=== PATIENT | female | born 1980 | race Caucasian/White ===

== ENCOUNTER → 2024-07-02 | Outpatient (CLI) | payer MEDICAID, SELFPAY ==
--- NOTE | 2024-07-02 11:30 | XR_ITS ---
Examination: Screening digital mammography, bilateral Computer aided detection 3-D breast Tomosynthesis, bilateral Date and time of exam: July 02, 2024 1149 hours No priors Indication: Screening Technique: Nonmagnified MLO, CC views of the breasts to been obtained, reconstructed from 3-D Tomosynthesis images. R2 computer aided detection program utilized for evaluation of suspicious masses and/or abnormal calcifications. 3-D Tomosynthesis images obtained. Findings: The breasts are heterogeneously dense, which may obscure small masses Benign calcifications 17 mm focal asymmetry upper right breast MLO view, posterior depth 6.4 cm from the nipple Benign calcifications IMPRESSION: BI-RADS Category 0: Incomplete: Need additional imaging evaluation 17 mm focal asymmetry upper right breast MLO view, posterior depth, recommend follow-up spot
== END | disposition home or self-care (01) ==
LOC: CDIM 11:41
PROVIDERS: Referring Provider Family Medicine; Visit Provider Family Medicine
DX: Z12.31 Encounter for screening mammogram for malignant neoplasm of breast (principal); N64.89 Other specified disorders of breast
CPT/HCPCS: 77063; 77067

== ENCOUNTER → 2024-08-21 | Outpatient (CLI) | payer MEDICAID, SELFPAY ==
--- NOTE | 2024-08-21 13:30 | XR_ITS ---
Examination: Breast ultrasound complete, bilateral Date and time of exam: August 21, 2024 1410 hours INDICATIONS: Mammogram July 02, 2024 17 mm focal asymmetry upper right breast MLO view, 6.4 cm from the nipple Technique: Real-time grayscale ultrasonographic imaging bilateral breasts, including all 4 quadrants as well as nipple retroareolar and axillary regions. Findings: No cystic or solid mass right breast No cystic or solid mass left breast 19 mm left axillary lymph node IMPRESSION: BI-RADS Category 2: Benign findings
--- NOTE | 2024-08-21 14:30 | XR_ITS ---
Examination: Diagnostic digital mammography, unilateral, right Computer aided detection 3-D breast Tomosynthesis, unilateral Date and time of exam: August 21, 2024 1423 hours INDICATIONS: Mammogram July 02, 2024 17 mm focal asymmetry upper right breast MLO view posterior depth, 6.4 cm from the nipple Technique: Nonmagnified MLO, CC views of the right breast have been obtained, reconstructed from 3-D Tomosynthesis images. R2 computer aided detection program utilized for evaluation of suspicious masses and/or abnormal calcifications. 3-D Tomosynthesis images obtained. Findings: The breast is heterogeneously dense, which may obscure small masses No suspicious nodule is depicted on the spot compression views Impression: BI-RADS category 2: Benign findings Return to yearly follow-up mammography
== END | disposition home or self-care (01) ==
PROVIDERS: PCP Family Medicine; Referring Provider Family Medicine; Visit Provider Family Medicine
DX: R92.321 Mammographic fibroglandular density, right breast (principal); N64.89 Other specified disorders of breast
CPT/HCPCS: 76641; 77061; 77065; G0279

== ENCOUNTER → 2024-11-04 | Outpatient (CLI) | payer MEDICAID, SELFPAY ==
--- NOTE | 2024-11-04 | XR_ITS ---
Examination: Lumbar spine, 5 views Technique: Lumbar spine AP, lateral, coned lateral lower lumbar spine, bilateral obliques 5 views Exam date and time: November 04, 2024 1349 hours INDICATIONS: Lower back pain beginning one year ago. FINDINGS: Grade 1 anterolisthesis L4 on L5 No lumbar fracture Moderate disc narrowing L4-L5, L5-S1 No spondylolisthesis IMPRESSION: Moderate degenerative disc disease L4-L5, L5-S1
--- NOTE | 2024-11-04 | XR_ITS ---
Examination: Left hip AP, lateral, AP pelvis 3 views Technique: Hip AP lateral, AP pelvis, 3 views, left Exam date and time:November 04, 2024 1349 hours INDICATIONS: Left hip pain months. FINDINGS: Mild osteopenia Mild to moderate narrowing left hip joint No left hip fracture or dislocation Mild narrowing right hip joint Bones of the pelvis intact No hip fracture IMPRESSION: Mild to moderate narrowing left hip joint.
== END | disposition home or self-care (01) ==
PROVIDERS: PCP Family Medicine; Referring Provider Family Medicine; Visit Provider Family Medicine
DX: M25.852 Other specified joint disorders, left hip (principal); M51.369 Other intervertebral disc degeneration, lumbar region without mention of lumbar back pain or lower extremity pain; M51.379 Other intervertebral disc degeneration, lumbosacral region without mention of lumbar back pain or lower extremity pain
CPT/HCPCS: 72110; 73502

== ENCOUNTER 2025-02-19 13:37 | Outpatient (RCR) | payer MEDICAID, SELFPAY ==
--- NOTE | 2025-02-19 14:15 | PTNOTE_ITS ---
PT OP Initial Eval Patient Information Outpatient Physical Therapy Treatment Date: 02/19/25 Visit Reasons: Left hip pain Medical Diagnosis: M70.62 Treatment Dx #1: L hip pain Treatment Dx #2: LBP Start of Care: 02/19/25 Date of Onset: 2 yrs ago Smoking Status Smoking Status: Never smoker Initial Assessment Subjective: Pt is 44 yr old female who reports L lateral hip pain and LBP if she lifts something heavy. 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 Increased pain as soon as she stops working. PMH: ovarian pulyp Imaging: Xray of L/S in EMR Grade 1 anterolisthesis L4 on L5, No lumbar fracture, Moderate disc narrowing L4-L5, L5-S1 Pt goal: to see if it will help a little, learn HEP Objective: ? Trunk ArOM: ? B SB 50% of normal with pain to the L ? Extension: 20% with pain around L4-5, L5-S1 ? Flexion: 10 from floor with LBP ? B rotation: 70% ? TTP: moderate of paraspinals L5-S1 and L ITB ? Neuro: L SLR: negative L hip AROM Flexion: 95 deg Abduction: 30 deg IR: 10 deg with pain ER: full Assessment: Pt presents with LBP and trunk sidebending sensitivty with pain that runs into the L lateral hip with L sidebending. The L ITB is also TTP which may be a seperate issue. She may benefit from therapy to meet goals for L ITB pain but the lumbar radiculopathy seems to be from the anterolisthesis of L4 on L5 which has poor rehab potential. Eval followed by HEP printouts. Short Term and Narcotics Agent Goals 1. Ind with HEP 2. Decreased TTP of L ITB from mod to min 3. Improved L hip abduction to full Treatment Plan 1. Manual therapy ? 2. Therex ? 3. Modalities as indicated, moist heat, ice, estim, mechanical traction Frequency and Duration: 1-2x a week to learn HEP for up to 15 visits Certification Dates: 02/19/25 to 05/20/25 Procedure Charges OP PT Eval Mod Complex 30 minutes: Yes
== END 2025-02-19 23:59 | disposition home or self-care (01) ==
LOC: CPTX 13:37
PROVIDERS: PCP Orthopaedic Surgery; Referring Provider Orthopaedic Surgery; Visit Provider Orthopaedic Surgery
DX: M25.552 Pain in left hip (principal); M70.62 Trochanteric bursitis, left hip
CPT/HCPCS: 97162

== ENCOUNTER 2025-03-03 09:34 | Day surgery (SDC) | payer MEDICAID, SELFPAY ==
[2025-02-26 12:07] VITALS: BMI 25.4
[2025-02-26 13:14] LABS: Basophils # (Auto) 0.0 Thou/mm3 (0.0-0.2); Basophils % (Auto) 0 % (0-2.5); Eosinophils # (Auto) 0.1 Thou/mm3 (0.0-0.5); Eosinophils % (Auto) 1 % (0-10); Hematocrit 39.6 % (36.0-46.0); Hemoglobin 13.5 g/dL (12.0-16.0); Immature Granulocytes Auto 0.02 Thou/mm3 (0.00-0.00); Lymphocytes # (Auto) 1.9 Thou/mm3 (1.0-4.8); Lymphocytes % (Auto) 26 % (10-50); Mean Corpuscular HGB Conc 34.1 g/dl (31.0-37.0); Mean Corpuscular Hemoglobin 31.6 pg (25.0-35.0); Mean Corpuscular Volume 93 fL (80-100); Monocytes # (Auto) 0.4 Thou/mm3 (0.0-0.8); Monocytes % (Auto) 6 % (0-12); Neutrophils # (Auto) 5.0 Thou/mm3 (1.8-7.7); Neutrophils % (Auto) 67 % (37-80); Nucleated Red Blood Cell # 0.00 Thou/mm3 (0.00-0.00); Nucleated Red Blood Cell % 0 /100 WBC (0); Platelet Count 270 Thou/mm3 (140-440); RDW Standard Deviation 40.8 fL (36.4-46.3); Red Blood Count 4.27 Miln/mm3 (4.00-5.20); White Blood Count 7.5 Thou/mm3 (3.6-11.0)
[2025-02-26 13:35] LABS: Alanine Aminotransferase 9 U/L (10-49); Albumin, Serum 4.2 gm/dL (3.5-5.0); Albumin/Globulin Ratio 1.8 (1.2-2.2); Alkaline Phosphatase 28 U/L (46-116); Anion Gap 7 (7-16); Aspartate Amino Transferase 17 U/L (0-34); BUN/Creatinine Ratio 10 Ratio (12-20); Beta HCG,Quantitative < 1 mIU/mL (<5.0); Bilirubin,Total 0.4 mg/dL (0.3-1.2); Blood Urea Nitrogen 8 mg/dL (9-23); Calcium 9.1 mg/dL (8.3-10.6); Calcium (Corrected) 9.1 mg/dL (8.5-10.1); Carbon Dioxide 27.3 mMol/L (20.0-31.0); Chloride 105 mMol/L (98-107); Creatinine (Component) 0.8 mg/dL (0.6-1.3); Estimated Creatinine Clearance 83.7 mL/min (>60); Globulin 2.3 gm/dL (2.3-3.5); Glucose 91 mg/dL (74-106); Osmolality,Calculated 275 (275-295); Potassium 4.2 mMol/L (3.4-5.1); Sodium 139 mMol/L (136-145); Total Protein 6.5 gm/dL (5.7-8.2); eGFR > 60 See Note
[2025-02-26 13:40] LABS: INR 0.9 (0.9-1.3); Partial Thromboplastin Time 24.2 Seconds (22.0-36.0); Prothrombin Time 9.3 Seconds (9.0-12.2)
--- NOTE | 2025-03-02 07:39 | ESHP_ITS ---
RE: DL FRY : 1980 DATE OF ADMISSION: 03/03/2025 HISTORY OF PRESENT ILLNESS: This is a 44-year-old with endometrial polyp and abnormal uterine bleeding, who presents for removal of polyp and endometrial ablation. ALLERGIES: NO KNOWN DRUG ALLERGIES. MEDICATIONS: 1. Citalopram 10 mg 1 p.o. daily. 2. Venecia control pill 24 Fe 1 mg/20 mcg p.o. daily. PAST MEDICAL HISTORY: Denies. PAST SURGICAL HISTORY: Denies. FAMILY HISTORY: Denies. REVIEW OF SYSTEMS: Denies any chest pain, palpitations, cough, fever, shortness of breath, or lower extremity pain. PHYSICAL EXAMINATION: VITAL SIGNS: Blood pressure 110/70, heart rate 88, respirations 18, temperature 98.2. HEENT: Oropharynx and sclerae are clear. LUNGS: Clear to auscultation bilaterally. HEART: Regular rate and rhythm. ABDOMEN: Nontender. EXTREMITIES: Nontender. SKIN: No gross rashes or lesions. NEUROLOGIC: No focal deficit. ASSESSMENT: Abnormal uterine bleeding endometrial polyp. PLAN: Hysteroscopy, fractional dilatation and curettage, MyoSure removal of endometrial polyp, NovaSure endometrial ablation. Informed consent was obtained. The patient was made aware of the risks, complications, alternatives, and benefits of the proposed procedure and she agrees. She is aware of the risk of injury to bowel and bladder, adjacent organs, pulmonary embolism, deep vein thrombosis, pelvic infection, reoperation to repair injury to internal organs, anesthesia complications, the possibility that a laparotomy needs to be performed to repair organs or control bleeding, and the possibility the procedure is not able to be completed due to severe adhesions or technical difficulties. She verbalized understanding and agrees to proceed with the procedure with an understanding of the risks and complications. DT: 06:58:17 TT: 07:37:00 Ref: [id number] - TID: [id number] [facility]ITALE[facility]
[2025-03-03] VITALS (9 sets, daily range): BP systolic 119–130; BP diastolic 68–89; PULSE 72–111; RESP 14–21; TEMP 36.8–37.4; O2SAT 99–100; BMI 25.2
--- NOTE | 2025-03-03 12:00 | ESOP_ITS ---
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 She was placed in the dorsal lithotomy position and prepped and draped the usual sterile fashion.? A timeout was performed.? A bivalve speculum was inserted.? A single-tooth tenaculum was used to grasp the anterior lip of the cervix.? The uterine cavity was sounded to 9.0 cm.? The cervical length measured 4.0 cm.? The cervix was dilated to accommodate the 5.5 mm Omni hysteroscope.? Using the Aquilex system and normal saline as the distending media the hysteroscopy was performed and 4 endometrial polyps?were visualized in the uterine cavity.?? The Using the MyoSure Reach device the polypectomies were performed and specimens sent to pathology. The fluid deficit at the end of the MyoSure procedure was 0.? The endocervix was curetted with the Kevorkian curette and specimen sent to pathology.? The uterine cavity was curetted with a 5 mm curette and specimen sent to pathology.? The NovaSure catheter was plugged into the controller.? It went through its purge cycle.? The array was deployed and was found to be complete and intact with the width meter working properly. The Novasure catheter was appropriately seated in the uterine cavity.? The cavity length was 5.0 cm, ?the cavity width was 4.0 cm the power setting was 132 W.? The carbon dioxide cavity integrity assessment test was performed.? The uterine cavity was intact.? The controller was enabled and the ablation was performed for a total of 92 seconds before the controller shut off.? The array was retracted into the sheath and the catheter was removed from the uterine cavity.? The array was redeployed and found to be complete and intact.? There was bleeding at the anterior lip of the cervix at the site of the tenaculum and usin g the Bovie cautery hemostasis was achieved.? There was no bleeding at the end of the procedure.?The vaginal vault had a lateral vaginal laceration due to the speculum stretching and tearing the right wall of the vagina. 0 vicryl suture was used for repair. No bleedign at the end of the procedure. All instruments were removed from the vagina.? She was reversed from general anesthesia in supine position and transferred to the cover room in stable condition.? She tolerated the procedure well.? Counts were correct.? I discussed with the patient's family the nature of her condition, the intraoperative findings, the expectation for recovery, all questions answered. Specimen: other (1. Endometrial polyps . 2. Endometrial currettings 3. Endocervical currettings. ) Estimated blood loss (ml): 60 Findings: See above findings 4 Endometrial polyps. Complications: none Surgical staff Operation Date: 03/03/25 11:20 Case Staff FRONT LOADER RESIDENTIAL DRIVER: Mervat Chu Diagnosis Discharge Diagnosis (1) Abnormal uterine bleeding due to endometrial polyp: Status: Acute (2) Status post endometrial ablation: Status: Acute Problem List Completed Was Problem List Reviewed/Reconciled?: Yes
--- NOTE | 2025-03-03 12:11 | SUR.PHASEI ---
1147: Pt received in [facility] via gurney. Report from Anya ZAMAN and Ignacio SULLIVAN. Pt groggy. Aroused with eye opening then drifts back to sleep. Resp even, unlabored. VS stable. No vaginal bleeding. No c/o pain. 1212: Pt resting with no complaints voiced. Resp even, unlabored. VS stable. No vaginal bleeding. Denies pain.
--- NOTE | 2025-03-03 12:38 | SUR.PHASEII ---
1238: Pt more awake, alert. Resp even, unlabored. VS stable. No vaginal bleeding. States she had mild cramping like her menses. Stated discomfort very tolerable. Pt sitting up tolerating po fluids with no difficulty swallowing and no n/v.
--- NOTE | 2025-03-03 13:13 | SUR.PHASEII ---
1304: Pt fully awake, oriented x3. Pt dressed and assisted to transport chair. Ambulation steady. Pt and stated understanding of discharge instructions. Pt discharged from [facility] in stable condition.
== END 2025-03-03 13:04 | disposition home or self-care (01) ==
PROVIDERS: PCP Family Medicine; Referring Provider Specialist; Visit Provider Specialist
PROC: 0U5B8ZZ Destruction of Endometrium, Via Natural or Artificial Opening Endoscopic (ICD-10-PCS; CPT 58563; principal; 2025-03-03 11:15)
DX: N84.0 Polyp of corpus uteri (principal)
CPT/HCPCS: 58563; 36415; 80053; 84702; 85025; 85610; 85730; 86850; 86900; 86901; A4217; A4649; J0690; J1885; J2250; J2704; J3010; J3490

== ENCOUNTER 2025-03-16 14:00 | Outpatient (RCR) | payer MEDICAID, SELFPAY ==
--- NOTE | 2025-02-26 18:41 | PT.ODAYNRPT ---
PT Outpatient Daily Note OP Daily Note Outpatient Physical Therapy Treatment Date: 02/26/25 Visit Reasons: Left hip pain Subjective: Same as evaluation Objective: See F/S for therex MT: STM L ITB with flexbar x7' Assessment: High TTP of L ITB with manual therapy that may be radiating from L/S Plan: Continue per POC Length of Time (minutes) of Treatment: 30 Minutes Procedure Charges Therapeutic Exercise 30 minutes: Yes
--- NOTE | 2025-03-09 13:42 | PT.ODAYNRPT ---
PT Outpatient Daily Note OP Daily Note Outpatient Physical Therapy Treatment Date: 03/09/25 Visit Reasons: Left hip pain Subjective: The pain of lateral thigh is lower today Objective: See F/S for therex MT: STM L ITB with flexbar x7' Assessment: Mod/High TTP of L ITB with manual therapy that may be radiating from L/S Plan: Continue per POC Length of Time (minutes) of Treatment: 30 Minutes Procedure Charges Therapeutic Exercise 30 minutes: Yes
--- NOTE | 2025-03-16 17:35 | PT.ODAYNRPT ---
PT Outpatient Daily Note OP Daily Note Outpatient Physical Therapy Treatment Date: 03/16/25 Visit Reasons: Left hip pain Subjective: Continued lateral L hip pain Objective: See f/S for therex Assessment: Pt can correct lumbar flexion with bending with cues but tends to round her back Plan: Continue per POC Length of Time (minutes) of Treatment: 30 Minutes Procedure Charges Therapeutic Exercise 30 minutes: Yes
== END 2025-03-22 23:59 | disposition home or self-care (01) ==
LOC: CPTX 14:00
PROVIDERS: PCP Orthopaedic Surgery; Referring Provider Orthopaedic Surgery; Visit Provider Orthopaedic Surgery
DX: M25.552 Pain in left hip (principal); M54.50 Low back pain, unspecified; M70.62 Trochanteric bursitis, left hip
CPT/HCPCS: 97110

== ENCOUNTER 2025-04-14 13:30 | Outpatient (RCR) | payer MEDICAID, SELFPAY ==
--- NOTE | 2025-04-07 14:19 | PT.ODAYNRPT ---
PT Outpatient Daily Note OP Daily Note Outpatient Physical Therapy Treatment Date: 04/07/25 Visit Reasons: left hip pain Subjective: Pt got a shot in the lateral hip and pain relieved for a while and then came back. Objective: See F/S for therex FADIR test: positive Assessment: Fadir testing positive today consistent with mild to moderate hip OA on Xray. Plan: Continue per POC to focus on L hip pain Length of Time (minutes) of Treatment: 30 Minutes Procedure Charges Therapeutic Exercise 30 minutes: Yes
--- NOTE | 2025-04-14 14:43 | PT.ODAYNRPT ---
PT Outpatient Daily Note OP Daily Note Outpatient Physical Therapy Treatment Date: 04/14/25 Visit Reasons: left hip pain Subjective: Pt c/o minimal lateral Lt hip pain Objective: See F/S for therex performed Assessment: Min increase in pain with ball squeezes. Good tolerance to long axis distraction with a relief of pain. Lateral hip distraction provoked pain. Plan: Continue with POC Length of Time (minutes) of Treatment: 30 Minutes Procedure Charges Therapeutic Exercise 30 minutes: Yes
== END 2025-04-21 23:59 | disposition home or self-care (01) ==
LOC: CPTX 13:30
PROVIDERS: PCP Orthopaedic Surgery; Referring Provider Orthopaedic Surgery; Visit Provider Orthopaedic Surgery
DX: M54.16 Radiculopathy, lumbar region (principal); M25.552 Pain in left hip; M70.62 Trochanteric bursitis, left hip
CPT/HCPCS: 97110

== ENCOUNTER 2025-05-21 14:30 | Outpatient (RCR) | payer MEDICAID, SELFPAY ==
--- NOTE | 2025-04-23 14:38 | PT.ODAYNRPT ---
PT Outpatient Daily Note OP Daily Note Outpatient Physical Therapy Treatment Date: 04/23/25 Visit Reasons: LEFT HIP PAIN Subjective: Pt reports minimal pain to Lt hip Objective: See F/S for therex performed Assessment: Improved tolerance with resisted lateral steps and monster walks, no rest breaks required. No increase in pain with therex. Plan: Continue with POC Length of Time (minutes) of Treatment: 30 Minutes Procedure Charges Therapeutic Exercise 30 minutes: Yes
--- NOTE | 2025-05-06 15:02 | PT.ODAYNRPT ---
PT Outpatient Daily Note OP Daily Note Outpatient Physical Therapy Treatment Date: 05/06/25 Visit Reasons: LEFT HIP PAIN Subjective: Pt reports minimal pain to Lt hip Objective: See F/S for therex performed Assessment: Good response to resisted lateral steps and monster walks, no rest breaks required. Plan: Continue with POC Length of Time (minutes) of Treatment: 15 Minutes Procedure Charges Therapeutic Exercise 15 minutes: Yes
--- NOTE | 2025-05-13 18:01 | PT.ODAYNRPT ---
PT Outpatient Daily Note OP Daily Note Outpatient Physical Therapy Treatment Date: 05/13/25 Visit Reasons: LEFT HIP PAIN Subjective: Pt reports minimal pain to Lt hip, less hip pain since starting therapy Objective: See F/S for therex performed Assessment: The hip pain is consistent with OA Plan: Continue with POC Length of Time (minutes) of Treatment: 30 Minutes Procedure Charges Therapeutic Exercise 30 minutes: Yes
--- NOTE | 2025-05-21 17:59 | PT.ODAYNRPT ---
PT Outpatient Daily Note OP Daily Note Outpatient Physical Therapy Treatment Date: 05/21/25 Visit Reasons: LEFT HIP PAIN Subjective: Pt reports minimal pain to Lt hip, less hip pain since starting therapy Objective: See F/S for therex performed Assessment: The hip pain is consistent with OA Plan: Continue with POC Length of Time (minutes) of Treatment: 30 Minutes Procedure Charges Therapeutic Exercise 30 minutes: Yes
== END 2025-05-22 23:59 | disposition home or self-care (01) ==
LOC: CPTX 14:30
PROVIDERS: PCP Orthopaedic Surgery; Referring Provider Orthopaedic Surgery; Visit Provider Orthopaedic Surgery
DX: M54.16 Radiculopathy, lumbar region (principal); M70.62 Trochanteric bursitis, left hip
CPT/HCPCS: 97110

== ENCOUNTER 2025-06-16 12:57 | Outpatient (RCR) | payer MEDICAID, SELFPAY ==
--- NOTE | 2025-06-16 13:42 | PT.ODAYNRPT ---
PT Outpatient Daily Note OP Daily Note Outpatient Physical Therapy Treatment Date: 06/16/25 Visit Reasons: left hip pain Subjective: Pt reports minimal pain to Lt hip, less hip pain since starting therapy Objective: See F/S for therex performed Assessment: The hip pain is consistent with OA and possible GT bursitis Plan: Reassess Length of Time (minutes) of Treatment: 30 Minutes Procedure Charges Therapeutic Exercise 30 minutes: Yes
== END 2025-06-21 23:59 | disposition home or self-care (01) ==
LOC: CPTX 12:57
PROVIDERS: PCP Orthopaedic Surgery; Referring Provider Orthopaedic Surgery; Visit Provider Orthopaedic Surgery
DX: M25.552 Pain in left hip (principal); M54.50 Low back pain, unspecified; M70.62 Trochanteric bursitis, left hip
CPT/HCPCS: 97110

== ENCOUNTER 2025-07-06 13:00 | Outpatient (RCR) | payer MEDICAID, SELFPAY ==
--- NOTE | 2025-06-24 18:35 | PT.ODAYNRPT ---
PT Outpatient Daily Note OP Daily Note Outpatient Physical Therapy Treatment Date: 06/24/25 Visit Reasons: Left hip pain Subjective: Pt reports minimal pain to Lt hip, less hip pain since starting therapy Objective: See F/S for therex performed Assessment: The hip pain is consistent with OA and possible GT bursitis Plan: Continue per POC Length of Time (minutes) of Treatment: 30 Minutes Procedure Charges Therapeutic Exercise 30 minutes: Yes
--- NOTE | 2025-07-01 15:34 | PT.ODAYNRPT ---
PT Outpatient Daily Note OP Daily Note Outpatient Physical Therapy Treatment Date: 07/01/25 Visit Reasons: Left hip pain Subjective: Pt reports minimal pain in the left hip, less hip pain since starting therapy Objective: See F/S for therex Assessment: The hip pain is consistent with OA and possible GT bursitis. Improved strength into abduction since starting therapy. Plan: Reassess Length of Time (minutes) of Treatment: 30 Minutes Procedure Charges Therapeutic Exercise 30 minutes: Yes
--- NOTE | 2025-07-06 18:20 | PTNOTE_ITS ---
PT OP Progress/Discharge Note Date of Service: 07/06/25 Progress Note/DC Note Progress Note/Discharge Note: DC Note Patient Information Visit Reasons: Left hip pain Service Continue Service or Discharge: Discharge Discharge Date: 07/06/25 Status Subjective: Pt reports minimal pain in the left hip, less hip pain since starting therapy Objective: L hip AROM: Flexion: 100 deg SLR: 75 deg Abduction: full Gait: symmetrical Assessment: Pt has attended the eval and 13 Rx sessions with good progress to meet goals. Pt has decreased TTP of L ITB from mod to min to meet that goal but the glute mediu s region is TTP. The hip pain is consistent with OA and possible GT bursitis. Improved strength into abduction since starting therapy. Pt has improved L hip abduction to full to meet that goal and she is independent with HEP. Pt may benefit from further diagnostic imaging such as MRI if pain worsens. Plan: D/C with HEP Procedure Charges Therapeutic Exercise 30 minutes: Yes
== END 2025-07-22 23:59 | disposition home or self-care (01) ==
LOC: CPTX 13:00
PROVIDERS: PCP Orthopaedic Surgery; Referring Provider Orthopaedic Surgery; Visit Provider Orthopaedic Surgery
DX: M25.552 Pain in left hip (principal); M54.50 Low back pain, unspecified; M70.62 Trochanteric bursitis, left hip
CPT/HCPCS: 97110